=== PATIENT | female | born 1950 | race Native Hawaiian/Other Pacific Islander ===

== ENCOUNTER 2016-08-12 09:16 | Outpatient (CLI) | payer OTHER, BC | END 2016-08-12 19:09 | disposition home or self-care (01) | LOC: MAMMO 09:16 | DX: Z12.31 Encounter for screening mammogram for malignant neoplasm of breast (principal) | CPT/HCPCS: G0202-TC ==

== ENCOUNTER 2017-01-02 11:02 | Outpatient (CLI) | payer OTHER, BC | END 2017-01-02 12:05 | disposition home or self-care (01) | LOC: RAD 11:02 | DX: M70.71 Other bursitis of hip, right hip (principal) ==

== ENCOUNTER 2017-01-20 07:28 | Outpatient (CLI) | payer OTHER, BC ==
[2017-01-20 08:57] LABS: PLATELET COUNT 233 K/uL (152-353)
[2017-01-20 09:12] LABS: POTASSIUM 3.8 mmol/L (3.6-5.2)
== END 2017-01-20 19:06 | disposition home or self-care (01) ==
LOC: LABW 07:28
PROVIDERS: Podiatrist
DX: Z01.810 Encounter for preprocedural cardiovascular examination (principal); Z01.811 Encounter for preprocedural respiratory examination; Z01.812 Encounter for preprocedural laboratory examination; R79.1 Abnormal coagulation profile
CPT/HCPCS: 36415; 80053; 84702; 85002; 85027; 85610; 85730; 93005

== ENCOUNTER 2017-08-10 09:51 | Outpatient (CLI) | payer OTHER, BC ==
[2017-08-10 10:51] LABS: PLATELET COUNT 317 K/uL (152-353)
[2017-08-10 10:57] LABS: POTASSIUM 3.7 mmol/L (3.6-5.2)
== END 2017-08-10 19:28 | disposition home or self-care (01) ==
LOC: LABW 09:51
PROVIDERS: Podiatrist
DX: Z01.810 Encounter for preprocedural cardiovascular examination (principal); Z01.811 Encounter for preprocedural respiratory examination; Z01.812 Encounter for preprocedural laboratory examination
CPT/HCPCS: 36415; 80053; 85002; 85027; 85610; 85730; 93005

== ENCOUNTER 2017-11-07 08:37 | Outpatient (CLI) | payer OTHER, BC | END 2017-11-07 19:24 | disposition home or self-care (01) | LOC: MAMMO 08:37 | DX: Z12.31 Encounter for screening mammogram for malignant neoplasm of breast (principal); M81.0 Age-related osteoporosis without current pathological fracture ==

== ENCOUNTER 2018-05-09 12:02 | Outpatient (CLI) | payer OTHER, BC | END 2018-05-09 22:07 | disposition home or self-care (01) | LOC: LABW 12:02 | DX: R73.9 Hyperglycemia, unspecified (principal) | CPT/HCPCS: 36415; 82947 ==

== ENCOUNTER 2018-09-18 09:41 | Outpatient (CLI) | payer OTHER, BC | END 2018-09-18 19:16 | disposition home or self-care (01) | LOC: MAMMO 09:41 | DX: N64.4 Mastodynia (principal) ==

== ENCOUNTER 2018-12-13 10:59 | Outpatient (CLI) | payer OTHER, BC | END 2018-12-13 22:32 | disposition home or self-care (01) | LOC: RAD 10:59 | DX: J20.9 Acute bronchitis, unspecified (principal); N18.3 Chronic kidney disease, stage 3 (moderate) ==

== ENCOUNTER 2019-12-12 10:22 | Outpatient (CLI) | payer OTHER, BC | END 2019-12-12 21:55 | disposition home or self-care (01) | LOC: RAD 10:22 | DX: Z03.818 Encounter for observation for suspected exposure to other biological agents ruled out (principal) ==

== ENCOUNTER 2019-12-19 09:53 | Outpatient (CLI) | payer OTHER, BC | END 2019-12-19 21:49 | disposition home or self-care (01) | LOC: RAD 09:53 | DX: U07.1 COVID-19 (principal) ==

== ENCOUNTER 2020-05-13 10:31 | Outpatient (CLI) | payer OTHER, BC | END 2020-05-13 21:50 | disposition home or self-care (01) | LOC: MAMMO 10:31 | PROVIDERS: ATTEND Obstetrics & Gynecology | DX: N60.11 Diffuse cystic mastopathy of right breast (principal) | CPT/HCPCS: G0279 ==

== ENCOUNTER 2021-09-06 11:42 | Outpatient (CLI) | payer OTHER, BC | END 2021-09-06 19:00 | disposition home or self-care (01) | LOC: US 11:42 | PROVIDERS: ATTEND Nurse Practitioner Family | DX: R60.0 Localized edema (principal) ==

== ENCOUNTER 2021-10-27 10:01 | Outpatient (CLI) | payer OTHER, BC | END 2021-10-27 18:54 | disposition home or self-care (01) | LOC: US 10:01 | PROVIDERS: ATTEND Nurse Practitioner Family | DX: R30.9 Painful micturition, unspecified (principal) ==

== ENCOUNTER 2022-06-03 11:12 | Emergency (ER) | payer OTHER, BC ==
[~2022-06-03] VITALS: Ht 165.1 cm; Wt 93.4 kg
[2022-06-03 11:16] VITALS: BP 161/94; TEMP 98
== END 2022-06-03 13:36 | disposition home or self-care (01) ==
LOC: ED 11:12
PROC: 2W39X1Z Immobilization of Left Upper Extremity using Splint (ICD-10-PCS; principal; 2022-06-03)
DX: S42.295A Other nondisplaced fracture of upper end of left humerus, initial encounter for closed fracture (principal); W01.0XXA Fall on same level from slipping, tripping and stumbling without subsequent striking against object, initial encounter; Y92.512 Supermarket, store or market as the place of occurrence of the external cause
CPT/HCPCS: 99283

== ENCOUNTER 2022-07-06 10:21 | Emergency (ER) | payer OTHER, BC ==
[~2022-07-06] VITALS: Ht 165.1 cm; Wt 90.7 kg
[2022-07-06 10:21] VITALS: TEMP 98.1
[2022-07-06 11:05] LABS: PLATELET COUNT 252 K/uL (152-353)
[2022-07-06 11:17] LABS: POTASSIUM 3.4 mmol/L (3.6-5.2)
[2022-07-06 11:18] LABS: PARTIAL THROMBOPLASTIN TIME 24.1 SECONDS (24.5-33.6)
[2022-07-06 15:14] VITALS: BP 130/78
== END 2022-07-06 15:19 | disposition short-term general hospital (02) ==
LOC: ED 10:21
PROVIDERS: Emergency Medicine
DX: I82.412 Acute embolism and thrombosis of left femoral vein (principal); I82.442 Acute embolism and thrombosis of left tibial vein; K44.9 Diaphragmatic hernia without obstruction or gangrene
CPT/HCPCS: 80053; 84484; 85027; 85379; 85610; 85730; 93005; 96372; 96374; 99284; J1650; J1885; Q9963